=== PATIENT | female | born 1965 | race Hispanic/Latino ===

== ENCOUNTER 2019-08-03 16:27 | Emergency (ER) | payer OTHER ==
[2019-08-03 16:43] VITALS: BP 146/74
[2019-08-03] MEDS ORDERED: NACL 0.9% 1000 ML 1,000 ML ONE (16:47)
[2019-08-03] MEDS ORDERED: ZOFRAN ONE (16:47)
[2019-08-03] MEDS ORDERED: ATIVAN IV PRN ×3 (16:55)
[2019-08-03] MEDS ORDERED: ATIVAN IV ONE (16:56)
[2019-08-03] MEDS ORDERED: NACL 0.9% 1000 ML 1,000 ML IV ONE (16:56)
--- NOTE | 2019-08-03 17:03 | Emergency Department Report ---
ED Alcohol HPI - General Chief Complaint: Alcohol Stated Complaint: PANIC ATTACK/DOC SENT Time Seen by Provider: 08/03/19 16:49 Source: patient Mode of arrival: Ambulatory Limitations: No Limitations - History of Present Illness Initial Comments: Patient is 54 years old female with history of alcohol abuse and alcohol dependence. Patient brought to the emergency room accompanied by her . Patient stated that they went [facility] and asked him to come to the ER for medical clearance. She stated that last time she drink was yesterday. He denied drinking alcohol today. She is anxious and shaky with obvious tremors but no seizures or visual hallucinations. MD Complaint: alcohol withdrawal, alcohol dependence, desires rehab, medical clearance for det Chronic Alcohol Use: Yes Previous Visits for Alcohol Intoxication?: No Recent Trauma: No Associated Symptoms: tremors Treatments Prior to Arrival: none - Related Data Allergies Allergy/AdvReac Type Severity Reaction Status Date / Time codeine AdvReac Swelling Verified 08/03/19 16:40 Sulfa (Sulfonamide AdvReac Rash Verified 08/03/19 16:41 Antibiotics) ED Review of Systems ROS: Stated complaint: PANIC ATTACK/DOC SENT Other details as noted in HPI Comment: All other systems reviewed and negative Constitutional: denies: chills, fever Respiratory: denies: cough, shortness of breath, SOB with exertion, wheezing Cardiovascular: denies: chest pain, palpitations Gastrointestinal: denies: abdominal pain, nausea, vomiting Psychiatric: anxiety. denies: depression, auditory hallucinations, visual hallucinations, homicidal thoughts, suicidal thoughts ED Past Medical Hx - Past Medical History Previous Medical History?: No Hx Hypertension: Yes Hx CVA: No Hx Heart Attack/AMI: No Hx Congestive Heart Failure: No Hx Diabetes: No Hx Deep Vein Thrombosis: No Hx Pulmonary Embolism: No Hx GERD: No Hx Liver Disease: No Hx Renal Disease: No Hx of Cancer: No Hx Sickle Cell Disease: No Hx Arthritis: No Hx Headaches / Migraines: No Hx Seizures: No Hx Kidney Stones: No Hx Psychiatric Treatment: No Hx Asthma: No Hx COPD: No Hx Tuberculosis: No Hx Dementia: No Hx HIV: No Additional medical history: seriasis - Surgical History Past Surgical History?: Yes Hx Coronary Stent: No Hx Open Heart Surgery: No Hx Pacemaker: No Hx Internal Defibrillator: No Hx Cholecystectomy: No Hx Appendectomy: No Hx Breast Surgery: No Additional Surgical History: gastric bypass surgery - Social History Smoking Status: Never Smoker Substance Use Type: Alcohol ED Physical Exam - General Limitations: No Limitations General appearance: alert, in no apparent distress, anxious - Head Head exam: Present: atraumatic, normocephalic, normal inspection - Eye Eye exam: Present: normal appearance, PERRL - ENT ENT exam: Present: normal exam, normal orophraynx, mucous membranes moist - Neck Neck exam: Present: normal inspection, full ROM. Absent: tenderness, meningismus, lymphadenopathy, thyromegaly - Respiratory Respiratory exam: Present: normal lung sounds bilaterally - Cardiovascular Cardiovascular Exam: Present: regular rate, normal rhythm, normal heart sounds - GI/Abdominal GI/Abdominal exam: Present: soft, normal bowel sounds. Absent: distended, tenderness, guarding, rebound, rigid, organomegaly, mass, bruit, pulsatile mass, hernia - Extremities Exam Extremities exam: Present: normal inspection, full ROM, normal capillary refill. Absent: tenderness, pedal edema, calf tenderness - Back Exam Back exam: Present: normal inspection, full ROM. Absent: CVA tenderness (R), CVA tenderness (L), muscle spasm, paraspinal tenderness, vertebral tenderness - Neurological Exam Neurological exam: Present: alert, oriented X3, CN II-XII intact, reflexes normal. Absent: motor sensory deficit - Psychiatric Psychiatric exam: Present: anxious. Absent: depressed, agitated, flat affect, manic, homicidal ideation, suicidal ideation - Skin Skin exam: Present: warm, intact, normal color ED Course Vital Signs 08/03/19 08/03/19 16:43 16:44 Temperature 98.2 F Pulse Rate 79 Respiratory 21 18 Rate Blood Pressure 146/74 [Right] O2 Sat by Pulse 100 100 Oximetry ED Medical Decision Making - Lab Data Result diagrams: 08/03/19 17:05 08/03/19 23:04 - Medical Decision Making Patient is 54 years old female with history of alcohol abuse and alcohol dependence. Patient brought to the emergency room accompanied by her . Patient stated that they went [facility] and asked him to come to the ER for medical clearance. She stated that last time she drink was yesterday. He denied drinking alcohol today. She is anxious and shaky with obvious tremors but no seizures or visual hallucinations. Patient received Ativan. No seizure activity was noticed. Patient potassium and magnesium replaced. Family wanted to take the patient to [facility] before she lose her bed. Patient discharged medical and psychiatrically stable. Juan A sandoval advised to return to the ER if she developed any new symptoms. Critical care attestation.: If time is entered above; I have spent that time in minutes in the direct care of this critically ill patient, excluding procedure time. ED Disposition Clinical Impression: Alcohol abuse, Hypokalemia, Hypomagnesemia Disposition: DC-01 TO HOME OR SELFCARE Is pt being admited?: No Condition: Stable Instructions: Abuse of Alcohol (ED) Additional Instructions: Patient is medically cleared to be admitted to a psychiatric facility. Referrals: TELLY BONILLA MD [Primary Care Provider] - 3-5 Days
[2019-08-03] MEDS ORDERED: ZOFRAN IV ONE (17:10)
[2019-08-03 17:18] LABS: Basophils # (Auto) 0.1 K/mm3 (0.0-0.1); Basophils % (Auto) 1.1 % (0.0-1.8); Eosinophils % (Auto) 0.4 % (0.0-4.3); Hematocrit 28.9 % (30.3-42.9); Hemoglobin 9.8 gm/dl (10.1-14.3); Lymphocytes # (Auto) 1.7 K/mm3 (1.2-5.4); Lymphocytes % (Auto) 34.3 % (13.4-35.0); Mean Corpuscular HGB Conc 34 % (30-34); Mean Corpuscular Volume 115 fl (79-97); Monocytes # (Auto) 0.3 K/mm3 (0.0-0.8); Monocytes % (Auto) 5.3 % (0.0-7.3); Platelet Count 100 K/mm3 (140-440); Red Blood Count 2.52 M/mm3 (3.65-5.03); Red Cell Distribution Width 17.9 % (13.2-15.2)
[2019-08-03 17:40] LABS: BUN/Creatinine Ratio 16; Blood Urea Nitrogen 11 mg/dL (7-17); Calcium 8.5 mg/dL (8.4-10.2); Hemolysis Index 8
[2019-08-03] MEDS ORDERED: K-DUR PO ONE (18:03)
[2019-08-03] MEDS ORDERED: MAGNESIUM SULFATE 1 GM in NACL 0.9% 50 ML IV ONE (20:00)
[2019-08-03] MEDS: KCL 10MEQ/100ML 10 MEQ/100 ML BAG IV SCH ×2 (20:10→22:08)
[2019-08-03] MEDS ORDERED: NACL 0.9% 250ML 250 ML ONE (20:15)
[2019-08-03 20:59] LABS: Amphetamine Screen,Urine PRESUMPTIVE NEGATIVE; Benzodiazepines Screen,Urine PRESUMPTIVE NEGATIVE; Cannabinoid Screen,Urine PRESUMPTIVE NEGATIVE; Cocaine Screen,Urine PRESUMPTIVE NEGATIVE; Methadone Screen,Urine PRESUMPTIVE NEGATIVE; Opiate Screen,Urine PRESUMPTIVE NEGATIVE
[2019-08-03] MEDS ORDERED: NACL 0.9% 250ML 250 ML IV ONE (22:49)
== END 2019-08-04 00:30 | disposition home or self-care (01) ==
LOC: ED 16:27
DX: E87.6 Hypokalemia (principal); E83.42 Hypomagnesemia; I10 Essential (primary) hypertension
CPT/HCPCS: 36415; 80048; 80307; 83735; 84132; 85025; 96365; 96366; 96367; 96368; 96375; 99283; J2060; J2405; J3475; J3480; J7030; J7050; 80320; G0480